=== PATIENT | female | born 1955 | race Caucasian/White ===

== ENCOUNTER 2017-01-01 08:38 | Emergency (ER) | payer BC ==
[~2017-01-01] VITALS: Ht 160 cm; Wt 71.0 kg
[~2017-01-01 08:38] MED LIST: ALPR.25 PO; DHEA50CA3 PO; ESOM1CAP6 PO; ESTR1 PO; ESTR42.5V PV; LISI-587 PO; WELL150T PO
[2017-01-01 08:50] VITALS: BP 140/78; PULSE 62; RESP 16; TEMP 98.2; O2SAT 98
[2017-01-01] MEDS ORDERED: ACETAMINOPHEN/HYDROcodone 325 MG/5 MG TAB PO ONE (09:00)
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
[2017-01-01] MEDS ORDERED: BUPR150T3 PO (09:05)
[2017-01-01] MEDS ORDERED: ESTR1TAB PO (09:05)
[2017-01-01] MEDS ORDERED: VITA1000 PO (09:05)
[2017-01-01] MEDS ORDERED: ESOM1CAP16 PO (09:05)
[2017-01-01] MEDS ORDERED: LISI10TA PO (09:05)
[2017-01-01] MEDS ORDERED: ALPR0.25 PO (09:05)
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
[2017-01-01] MEDS ORDERED: IBUP400T20 PO (09:44)
[2017-01-01] MEDS ORDERED: NORC5TAB PO (09:44)
== END 2017-01-01 09:59 | disposition home or self-care (01) ==
LOC: PHEFT 08:38
DX: S50.811A Abrasion of right forearm, initial encounter (principal); W22.8XXA Striking against or struck by other objects, initial encounter
CPT/HCPCS: 73090; 99283; L3908

== ENCOUNTER 2017-12-13 07:52 | Observation (INO) ==
[2017-12-13] MEDS ORDERED: Sod Chloride 0.9% Inj 1,000 ML IV.SIG ONE (08:33)
[2017-12-13] MEDS ORDERED: Morphine Inj 4 MG/ML Vial IV.PUSH ONE ×2 (08:33→10:55)
--- NOTE | 2017-12-13 08:40 | ED ---
HPI General Chief Complaint: Abdominal Pain Stated Complaint: Lower abd pain x yesterday Source: patient Mode of arrival: ambulatory Limitations: no limitations History of Present Illness HPI narrative: The patient is a 62-year-old female who presents to the emergency department for lower abdominal pain for 2 days duration. The patient states her pain started yesterday morning, located in the lower quadrants bilateral, left greater than right, radiating to the suprapubic region. The pain is associated with mild nausea but there is no vomiting or diarrhea. The patient does have a history of IBS, however, states her IBS pain is normal right upper quadrant and not associated with lower abdominal pain. The patient did take Bentyl orally prior to arrival without any alleviation of her symptoms. She denies any fever, chills, or sweats. The patient denies any associated dysuria, frequency, urgency, or hematuria. Symptoms are moderate. There are currently no alleviating or exacerbating factors. The patient does have a history of umbilical hernia repair, cholecystectomy, kidneys surgery, and complete hysterectomy. The patient's primary physician is Dr. Manley. The patient's blueprint tracer is Dr. Burris. complaint: abdominal pain Onset (ago): day(s) Pain Consistency: constant Location: LLQ and suprapubic Severity: moderate Severity scale (1-10): 6 Quality: aching Radiation: suprapubic Migration to: RLQ Relieving factors: nothing Exacerbating factors: nothing Associated symptoms: nausea Treatments prior to arrival: prescription analgesics Related Data Home Medications Medication Instructions Recorded Confirmed alprazolam TID PRN 12/13/17 bupropion HCl 300 mg PO QAM 12/13/17 12/13/17 cholecalciferol (vitamin D3) 1,000 unit PO DAILY 12/13/17 12/13/17 [Vitamin D3] dicyclomine 10 mg PO QID 12/13/17 12/13/17 esomeprazole magnesium [Nexium] 20 mg PO DAILY 12/13/17 12/13/17 estradiol 1 mg PO DAILY 12/13/17 12/13/17 lisinopril-hydrochlorothiazide 0.5 tab PO DAILY 12/13/17 12/13/17 Previous Rx's Medication Instructions Recorded tramadol 50 mg PO QID PRN #12 tab 12/13/17 Allergies Allergy/AdvReac Type Severity Reaction Status Date / Time penicillin G Allergy Severe Rash Unverified 12/13/17 07:59 codeine AdvReac Intermediate STOMACH Unverified 12/13/17 07:59 ACHE TAPE Allergy Intermediate Rash Uncoded 12/13/17 07:59 Review of Systems ROS: all other systems reviewed are negative [facility] Medical History Medical History Hx of gastroesophageal reflux (GERD) (Acute) Hx of primary hypertension (Acute) Hx of hysterectomy (Acute) Surgical History Surgical History History of kidney surgery (Acute) Hx of umbilical hernia repair (Acute) Hx of cholecystectomy (Acute) History of tonsillectomy and adenoidectomy (Acute) Social History Social History Substance History: No History of Abuse Smoking Status: Former smoker How Often Do You Have a Drink Containing Alcohol: Never Immunization History Tetanus Immunization: <5 Years Hx Influenza Vaccine This Season: No Exam Narrative Exam Narrative: GENERAL: Awake, alert, pleasant 62-year-old female who appears her stated age and is in no acute respiratory distress. SKIN: Focused skin assessment warm/dry. HEAD: Atraumatic. Normocephalic. EYES: Pupils equal and round. No scleral icterus. No injection or drainage. ENT: No nasal bleeding or discharge. Mucous membranes pink and moist. NECK: Trachea midline. No JVD. CARDIOVASCULAR: Regular rate and rhythm. No murmur appreciated. RESPIRATORY: No accessory muscle use. Clear to auscultation. Breath sounds equal bilaterally. GASTROINTESTINAL: Abdomen soft, tender to palpation left lower quadrant and suprapubic. Negative Peters's. Negative McBurney's. No guarding or rigidity. MUSCULOSKELETAL: No obvious deformities. No clubbing. No cyanosis. No edema. NEUROLOGICAL: Awake and alert. No obvious cranial nerve deficits. Motor grossly within normal limits. Normal speech. PSYCHIATRIC: Appropriate mood and affect; insight and judgment normal. Course Initial Documented Vital Signs Temperature 97.7 F 12/13/17 07:56 Pulse Rate 59 L 12/13/17 07:56 Respiratory Rate 18 12/13/17 07:56 Blood Pressure 163/72 H 12/13/17 07:56 Pulse Oximetry 98 12/13/17 07:56 Last Documented Vital Signs Temperature 97.7 F 12/13/17 07:56 Pulse Rate 59 L 12/13/17 07:56 Respiratory Rate 18 12/13/17 07:56 Blood Pressure 163/72 H 12/13/17 07:56 Pulse Oximetry 98 12/13/17 07:56 Medical Decision Making MDM Narrative Medical decision making narrative: IV was established, labs were drawn and sent , and the patient was placed on cardiac telemetry monitoring and continuous pulse oximetry monitoring. The patient was administered morphine, Zofran, and IV fluids. UA was sent to lab. CT of the abdomen and pelvis with oral and IV contrast was ordered. Laboratory evaluation is unremarkable. The patient's white count and lactic acid are normal. LFTs and lipase are normal. CT of the abdomen and pelvis reveals no acute pathology. The patient was reevaluated at 10:40 AM. The patient still had moderate pain, therefore, was administered a second dose of morphine and a dose of Toradol. I had a discussion with the patient's primary physician, Dr. Manley, who request the patient be discharged with a prescription for tramadol and have a follow-up appointment with him on Sunday 9 AM. The patient will be prescribed 3 days of tramadol. She will be provided a copy of her CT results and lab results at discharge. She is advised to return if symptoms worsen or progress. Medical Screen Exam Complete: Yes Emergency Medical Condition: Yes Differential Diagnosis Differential Diagnosis: Differential diagnosis includes diverticulitis, nephrolithiasis, UTI, pyelonephritis, sigmoid volvulus, cecal volvulus, atypical appendicitis, AAA. Lab Data Lab results reviewed: Yes I reviewed the patient's lab results. Lab results narrative: White count and lactic acid are unremarkable. LFTs and lipase are normal. Result diagrams: 12/13/17 08:30 12/13/17 08:30 Lab Results 12/13/17 12/13/17 12/13/17 Range/Units 08:30 08:30 08:30 CBC w Diff Auto diff final WBC 5.5 (4.0-11.0) th/mm3 RBC 4.30 (4.00-5.30) mil/mm3 Hgb 13.5 (11.6-15.3) gm/dL Hct 38.4 (35.0-46.0) % MCV 89.4 (80.0-100.0) fL MCH 31.4 (27.0-34.0) pg MCHC 35.2 (32.0-36.0) % RDW 13.5 (11.6-17.2) % Plt Count 297 (150-450) th/mm3 MPV 7.7 (7.0-11.0) fL Neut % (Auto) 66.6 (16.0-70.0) % Lymph % (Auto) 22.5 (9.0-44.0) % [place] % (Auto) 6.1 (0.0-8.0) % Eos % (Auto) 3.7 (0.0-4.0) % Baso % (Auto) 1.1 (0.0-2.0) % Neut # (Auto) 3.7 (1.8-7.7) th/mm3 Lymph # (Auto) 1.2 (1.0-4.8) th/mm3 [place] # (Auto) 0.3 (0.0-0.9) th/mm3 Eos # (Auto) 0.2 (0.0-0.4) th/mm3 Baso # (Auto) 0.1 (0.0-0.2) th/mm3 WBC Differential . Differential Comment . Sodium 141 (136-145) meq/L Potassium 3.7 (3.5-5.1) meq/L Chloride 107 (98-107) meq/L Carbon Dioxide 28.0 (21.0-32.0) meq/L Anion Gap 6 (5-15) meq/L BUN 16 (7-18) mg/dL Creatinine 0.86 (0.50-1.00) mg/dL Estimated GFR 67 L (>89) mL/min Random Glucose 100 (74-106) mg/dL Lactic Acid 0.8 (0.4-2.0) mmol/L Calcium 9.0 (8.5-10.1) mg/dL Total Bilirubin 0.5 (0.2-1.0) mg/dL AST 24 (15-37) U/L ALT 35 (10-53) U/L Alkaline Phosphatase 75 (45-117) U/L Total Protein 7.6 (6.4-8.2) g/dL Albumin 3.9 (3.4-5.0) g/dL Lipase 306 (73-393) U/L Ur Collection Type Urine Color (Yellw/Straw) Urine Clarity (Clear) Urine pH (5.0-8.5) Ur Specific [place] (1.002-1.035) Urine Protein (Neg-Trace) mg/dL Urine Glucose (UA) (Negative) mg/dL Urine Ketones (Negative) mg/dL Urine Occult Blood (Negative) Urine Nitrate (Negative) Urine Bilirubin (Negative) Urine Urobilinogen (Less than 2) mg/dL Ur Leukocyte Esterase (Negative) Ur Squamous Epith Cells (0-5) /hpf Micro UA Comment Ur Microscopic Review Urine Culture Comments 12/13/17 Range/Units 08:30 CBC w Diff WBC (4.0-11.0) th/mm3 RBC (4.00-5.30) mil/mm3 Hgb (11.6-15.3) gm/dL Hct (35.0-46.0) % MCV (80.0-100.0) fL MCH (27.0-34.0) pg MCHC (32.0-36.0) % RDW (11.6-17.2) % Plt Count (150-450) th/mm3 MPV (7.0-11.0) fL Neut % (Auto) (16.0-70.0) % Lymph % (Auto) (9.0-44.0) % [place] % (Auto) (0.0-8.0) % Eos % (Auto) (0.0-4.0) % Baso % (Auto) (0.0-2.0) % Neut # (Auto) (1.8-7.7) th/mm3 Lymph # (Auto) (1.0-4.8) th/mm3 [place] # (Auto) (0.0-0.9) th/mm3 Eos # (Auto) (0.0-0.4) th/mm3 Baso # (Auto) (0.0-0.2) th/mm3 WBC Differential Differential Comment Sodium (136-145) meq/L Potassium (3.5-5.1) meq/L Chloride (98-107) meq/L Carbon Dioxide (21.0-32.0) meq/L Anion Gap (5-15) meq/L BUN (7-18) mg/dL Creatinine (0.50-1.00) mg/dL Estimated GFR (>89) mL/min Random Glucose (74-106) mg/dL Lactic Acid (0.4-2.0) mmol/L Calcium (8.5-10.1) mg/dL Total Bilirubin (0.2-1.0) mg/dL AST (15-37) U/L ALT (10-53) U/L Alkaline Phosphatase (45-117) U/L Total Protein (6.4-8.2) g/dL Albumin (3.4-5.0) g/dL Lipase (73-393) U/L Ur Collection Type Clean catch Urine Color Yellow (Yellw/Straw) Urine Clarity Clear (Clear) Urine pH 6.0 (5.0-8.5) Ur Specific [place] Less/equal 1.005 (1.002-1.035) Urine Protein Negative (Neg-Trace) mg/dL Urine Glucose (UA) Negative (Negative) mg/dL Urine Ketones Negative (Negative) mg/dL Urine Occult Blood Negative (Negative) Urine Nitrate Negative (Negative) Urine Bilirubin Negative (Negative) Urine Urobilinogen 0.2 (Less than 2) mg/dL Ur Leukocyte Esterase Negative (Negative) Ur Squamous Epith Cells 0-5 (0-5) /hpf Micro UA Comment Culture not ind Ur Microscopic Review Microscopic reviewed Urine Culture Comments Culture not ind Imaging Data Radiologist's impression: Abdomen/Pelvis CT 12/13/17 08:33 CONCLUSION: 1. No acute abdominal or pelvic pathology. 2. 9 mm low-density lesion right lobe of liver suggestive of either some focal fatty infiltration versus a small cyst. 3. Status post cholecystectomy. Discharge Plan Discharge Disposition Patient Disposition: Discharge Home Discharge Condition Condition: Stable Discharge Order Discharge Orders: Discharge Order (Routine); Ordered 12/13/17 Ordered By: Fabián Bateman Discharge Details Diagnosis: Abdominal pain Physicians Team ED Provider: Fabián Bateman Primary Care Provider: Hawk Manley Rxs /Orders / Referrals /Forms Prescriptions: New tramadol 50 mg tablet 50 mg PO QID PRN (Reason: Acute pain) Qty: 12 RF: 0 No Action alprazolam 0.25 mg Tablet TID PRN (Reason: Anxiety) RF: 0 estradiol 1 mg Tablet 1 mg PO DAILY RF: 0 lisinopril-hydrochlorothiazide 20-25 mg Tablet 0.5 tab PO DAILY RF: 0 dicyclomine 10 mg Capsule 10 mg PO QID RF: 0 esomeprazole magnesium [Nexium] 20 mg Capsule,Delayed Release(Dr/Ec) 20 mg PO DAILY RF: 0 cholecalciferol (vitamin D3) [Vitamin D3] 1,000 unit Capsule 1,000 unit PO DAILY RF: 0 bupropion HCl 300 mg Tablet Extended Release 24 Hr 300 mg PO QAM RF: 0 Stand Alone Forms: Work Release/Restrictions Discharge Instructions Patient Printed Instructions: Abdominal Pain (ED) Additional Instructions: Please provide the patient a copy of her CT results and lab results at discharge. Medication as directed. Follow-up with your primary physician, Dr. Manley, Sunday at 9 AM. Return if symptoms worsen or progress. Status ED Status: Ready for Discharge
[2017-12-13 08:59] LABS: Bilirubin,Urine Negative (Negative); Clarity,Urine Clear (Clear); Color,Urine Yellow (Yellw/Straw); Glucose,Urine (UA) Negative (Negative); Leukocyte Esterase,Urine Negative (Negative); Nitrite,Urine Negative (Negative); Specific Gravity,Urine Less/Equal 1.005 (1.002-1.035); Urobilinogen,Urine 0.2 mg/dL (Less than 2)
[2017-12-13 09:02] LABS: Baso # (Auto) 0.1 th/mm3 (0.0-0.2); Baso % (Auto) 1.1 % (0.0-2.0); Eos # (Auto) 0.2 th/mm3 (0.0-0.4); Eos % (Auto) 3.7 % (0.0-4.0); Hematocrit 38.4 % (35.0-46.0); Hemoglobin 13.5 gm/dL (11.6-15.3); Lymph # (Auto) 1.2 th/mm3 (1.0-4.8); Lymph % (Auto) 22.5 % (9.0-44.0); Mean Corpuscular HGB Conc 35.2 % (32.0-36.0); Mean Corpuscular Hemoglobin 31.4 pg (27.0-34.0); Mean Corpuscular Volume 89.4 fL (80.0-100.0); Mean Platelet Volume 7.7 fL (7.0-11.0); Mono # (Auto) 0.3 th/mm3 (0.0-0.9); Mono % (Auto) 6.1 % (0.0-8.0); Neut # (Auto) 3.7 th/mm3 (1.8-7.7); Neut % (Auto) 66.6 % (16.0-70.0); Platelet Count 297 th/mm3 (150-450); Red Cell Distribution Width 13.5 % (11.6-17.2); White Blood Count 5.5 th/mm3 (4.0-11.0)
[2017-12-13 09:12] LABS: Chloride 107 meq/L (98-107); Potassium 3.7 meq/L (3.5-5.1); Sodium 141 meq/L (136-145)
[2017-12-13] MEDS ORDERED: Diatrizoate Meglum/Diatrizoate Sod Liq 9 ML UDC PO ONE (09:15)
[2017-12-13] MEDS ORDERED: Diatrizoate Meglum/Diatrizoate Sod Liq 9 ML UDC PO PRN (09:15)
[2017-12-13 09:16] LABS: Albumin 3.9 g/dL (3.4-5.0); Anion Gap 6 meq/L (5-15); Blood Urea Nitrogen 16 mg/dL (7-18); Glucose,Random 100 mg/dL (74-106); Lipase 306 U/L (73-393)
[2017-12-13 09:18] LABS: Alanine Aminotransferase 35 U/L (10-53); Aspartate Aminotransferase 24 U/L (15-37)
[2017-12-13 09:19] LABS: Glomerular Filtration Rate 67 mL/min (>89)
[2017-12-13 09:20] LABS: Total Protein 7.6 g/dL (6.4-8.2)
[2017-12-13 09:21] LABS: Alkaline Phosphatase 75 U/L (45-117)
[2017-12-13 09:31] LABS: Squamous Epithelial Cell,Urine 0-5 /hpf (0-5)
--- NOTE | 2017-12-13 10:33 | CT ---
EXAM DATE: 12/13/2017 10:24 AM EDT AGE/SEX: 62 years / Female INDICATIONS: Lower abdominal pain. CLINICAL DATA: This is the patient's initial encounter. Patient reports that signs and symptoms have been present for 1 day and indicates a pain score of 8/10. MEDICAL/SURGICAL HISTORY: Gastroesophageal reflux disease. Hypertension. Hysterectomy. Umbili tyron hernia repair. Cholecystectomy. Renal surgery. ORAL CONTRAST: Prescribed oral contrast ingested. RADIATION DOSE: 8.46 CTDI (mGy) COMPARISON: No prior exams available for comparison. TECHNIQUE: Multiple contiguous axial images were obtained through the abdomen and pelvis following b olus infusion of 90 ml Omnipaque 350 (iohexol) nonionic water-soluble contrast as a single exam dos e. Prescribed oral contrast ingested. Using automated exposure control and adjustment of the mA and/ or kV according to patient size, radiation dose was kept as low as reasonably achievable to obtain op timal diagnostic quality images. DICOM format image data is available electronically for review and comparison. FINDINGS: Lower Lungs: The visualized lower lungs are clear. Liver: The liver has a homogeneous density. There is a 9 mm low-density lesion right lobe of liver. T his may be some focal fatty infiltration versus a small cyst. The gallbladder has been surgically rem megan.. There is no dilation of the biliary tree. Spleen: Homogeneous density without enlargement. Pancreas: Unremarkable without mass or calcification. Kidneys: Normal in size and shape. No evidence of mass or hydronephrosis. Adrenal Glands: Unremarkable. Aorta: The aorta and proximal iliac vessels are grossly unremarkable without aneurysmal dilation. Bowel/Mesentery: The bowel loops are grossly unremarkable. The cecum and sigmoid colon have a normal configuration. There is stool throughout the colon. No inflammatory changes are demonstrated. No abhijit e fluid or loculated fluid collections are demonstrated. Abdominal Wall: Intact. Retroperitoneum: No evidence of adenopathy in the retrocrural, para-aortic, or deep pelvic regions. Bladder: Contours are smooth. Reproductive Organs: No abnormal masses or calcifications seen. Inguinal: The inguinal region is unremarkable without evidence of adenopathy. Bony Structures: Primary degenerative changes. CONCLUSION: 1. No acute abdominal or pelvic pathology. 2. 9 mm low-density lesion right lobe of liver suggestive of either some focal fatty infiltration ve rsus a small cyst. 3. Status post cholecystectomy. Electronically signed by: Benedicto Shelby MD 12/13/2017 10:31 AM EDT
[2017-12-13] MEDS ORDERED: Ketorolac Inj 30 MG/ML (IVP) Vial IV.PUSH ONE (10:55)
[2017-12-13] MEDS ORDERED: Dicyclomine Inj 20 MG/2 ML Ampul IM ONE (11:53)
[2017-12-13] MEDS ORDERED: ALPRAZolam 0.25 MG Tablet PO PRN (12:20)
[2017-12-13] MEDS: Polyethylene Glycol 3350 17 GM Packet PO SCH (18:27)
[2017-12-13] MEDS: Sod Chloride 0.9% Inj 1,000 ML IV.CONT SCH (18:27)
[2017-12-13] MEDS: buPROPion 150 MG 12 HR Tablet PO SCH (21:23)
[2017-12-14] MEDS: Sod Chloride 0.9% Inj 1,000 ML IV.CONT SCH (06:21)
[2017-12-14] MEDS ORDERED: Lisinopril 10 MG Tablet PO SCH (09:00)
[2017-12-14] MEDS ORDERED: Estradiol 1 MG Tablet PO SCH (09:00)
[2017-12-14] MEDS: Polyethylene Glycol 3350 17 GM Packet PO SCH (10:12)
[2017-12-14] MEDS: buPROPion 150 MG 12 HR Tablet PO SCH (10:13)
== END 2017-12-14 10:59 | disposition home or self-care (01) ==
LOC: PHED 07:52 → PHEDA 07:52 → PH3 13:04
PROVIDERS: ADMIT Family Medicine; ATTEND Family Medicine
DX: K21.9 Gastro-esophageal reflux disease without esophagitis; Z90.49 Acquired absence of other specified parts of digestive tract; K58.9 Irritable bowel syndrome, unspecified; I10 Essential (primary) hypertension; Z87.891 Personal history of nicotine dependence; Z90.710 Acquired absence of both cervix and uterus; R10.30 Lower abdominal pain, unspecified; Z88.0 Allergy status to penicillin